=== PATIENT | male | born 1950 | race Caucasian/White ===

== ENCOUNTER 2017-08-20 13:53 | Outpatient (CLI) | payer MEDICARE | END 2017-08-20 13:54 | disposition home or self-care (01) | LOC: BICMRI 13:53 | PROVIDERS: ATTEND Physical Medicine & Rehabilitation | DX: M47.892 Other spondylosis, cervical region (principal); M99.81 Other biomechanical lesions of cervical region; M50.823 Other cervical disc disorders at C6-C7 level; Z98.1 Arthrodesis status | CPT/HCPCS: 72141 ==

== ENCOUNTER 2019-05-20 14:02 | Outpatient (CLI) | payer MEDICARE ==
--- NOTE | 2019-05-20 16:09 | MRI ---
MRI LUMBAR SPINE NONCONTRAST: DATE: 05/20/2019 HISTORY: 69-year-old male with lumbar spondylosis. Low back pain. COMPARISON: None FINDINGS: 5 lumbar-type vertebrae. Vertebral body heights are maintained. No bone marrow signal abnormality. Ca uda equina is arranged in a symmetrical, normal distribution throughout the thecal sac. Conus medullaris terminates at T12-L1. Flowing bridging osteophytes from T11 T12-L1 level 2-3 and probably L3-4, consistent with DISH. T12-L1:Small right paracentral disc herniation or disc-osteophyte complex indents the right ventral a spect of thecal sac. No central stenosis or neural foraminal stenosis. Disc space maintained. L1-2:Normal L2-3:No central stenosis. Right far lateral and left far lateral disc bulges minimally encroach upon bilateral neural foraminal without high-grade neural foraminal stenosis. Disc space maintained. Mild facet DJD. L3-4:Mild bilateral facet DJD. No central stenosis. Mild bilateral neural foraminal stenosis. Disc sp landry maintained. L4-5:Severe bilateral degenerative facet hypertrophy, left greater than right. The facet DJD results in grade 1 anterolisthesis of L4 on L5. Minimal disc space narrowing. Mild diffuse disc bulge. Mild-moderate bilateral neural foraminal stenosis, right greater than left. No central stenosis. L5-S1:Moderate bilateral facet DJD. Moderate right neural foraminal stenosis. Mild left neural forami nal stenosis. No central stenosis. Disc space maintained. Small central and right paracentral disc protrusion abutting the right S1 nerve root at the right lateral recess. IMPRESSION: 1. Severe facet osteoarthrosis at L4-5 causing grade 1 spondylolisthesis. 2. Right paracentral and lateral small disc herniation at L5-S1 abutting right S1 nerve root. 3. Moderate right neural foraminal stenosis at L5-S1 4. No central spinal canal stenosis at any level. 5. Mild degenerative disc disease at a few levels.
== END 2019-05-20 14:03 | disposition home or self-care (01) ==
LOC: SCSMRI 14:02
PROVIDERS: ATTEND Orthopaedic Surgery
DX: M47.816 Spondylosis without myelopathy or radiculopathy, lumbar region (principal); M43.16 Spondylolisthesis, lumbar region; M48.07 Spinal stenosis, lumbosacral region; M51.36 Other intervertebral disc degeneration, lumbar region; M51.27 Other intervertebral disc displacement, lumbosacral region
CPT/HCPCS: 72148

== ENCOUNTER 2020-03-21 06:53 | Outpatient (CLI) | payer MEDICARE ==
--- NOTE | 2020-03-21 14:15 | RAD ---
EXAM: Two views chest PROVIDED CLINICAL HISTORY: Preoperative evaluation. COMPARISON: 02/05/2009. FINDINGS: Cardiac silhouette and pulmonary vasculature are within normal limits. Most inferior aspect lateral posterior costophrenic angles are excluded from view. However, the lungs are otherwise clear. Calcification of the anterior longitudinal ligament is again seen with degenerative changes in the sp ine. Chest is stable compared to prior exam. IMPRESSION: No acute cardiopulmonary process.
[2020-03-21 14:53] LABS: Hemoglobin 15.9 g/dL (14.0-18.0); Mean Corpuscular HGB CONC 34.3 G/DL (32.0-36.0); Mean Corpuscular Hemoglobin 32.7 PG (27.0-33.0); Mean Corpuscular Volume 95.5 fl (80.0-100.0); Mean Platelet Volume 10.4 fl (7.4-10.4); Platelet Count 225 10x3/uL (130-400); RBC Distribution Width 12.5 % (11.5-14.5); Red Blood Cell (RBC) Count 4.86 10x6/uL (4.40-5.80); White Blood Cell (WBC) Count 5.4 10x3/uL (4.5-11.0)
[2020-03-21 15:01] LABS: Anion Gap 18 mmol/L (10-20); BUN (Urea Nitrogen) 21 mg/dL (8.4-25.7); Calc. Creatinine Clearance 0 mL/min (70-130); Calcium 9.8 mg/dL (7.8-10.44); Carbon Dioxide 19 mmol/L (23-31); Chloride 107 mmol/L (98-107); Glucose 208 mg/dL (80-115); Potassium 4.8 mmol/L (3.5-5.1); Sodium 139 mmol/L (136-145)
[2020-03-22 01:36] LABS: SARS-CoV-2 MS2 Positive; SARS-CoV-2 N Gene Negative; SARS-CoV-2 S Gene Negative; SARS-CoV-2 by NAA Not Detected (NotDetected); SARS-CoV-2 orf1ab Negative
== END 2020-03-21 06:54 | disposition home or self-care (01) ==
LOC: LABBT 06:53
PROVIDERS: ATTEND Thoracic Surgery (Cardiothoracic Vascular Surgery)
DX: Z01.818 Encounter for other preprocedural examination (principal); Z20.822 Contact with and (suspected) exposure to COVID-19; I25.10 Atherosclerotic heart disease of native coronary artery without angina pectoris
CPT/HCPCS: 71046; 80048; 85027; 93005; U0003; 87635; 93010

== ENCOUNTER 2020-05-11 14:52 | Outpatient (CLI) | payer MEDICARE ==
[2020-05-11 17:58] LABS: #Eosinphils 0.3 10x3/uL (0.0-0.5); #Monocytes 0.5 10x3/uL (0.0-1.1); #Neutrophils 2.9 10x3/uL (1.5-8.4); %Basophils 0.8 % (0.0-2.0); %Eosinophils 5.5 % (0.0-6.0); %Lymphocytes 29.1 % (18.0-47.0); %Monocytes 9.7 % (0.0-10.0); %Neutrophils 54.5 % (40.0-75.0); Hemoglobin 15.9 g/dL (13.5-17.5); Mean Corpuscular HGB CONC 33.8 g/dL (32.0-36.0); Mean Corpuscular Hemoglobin 32.4 pg (27.0-33.0); Mean Corpuscular Volume 95.7 fl (81.2-95.1); Mean Platelet Volume 11.3 fl (7.4-10.4); Platelet Count 205 10x3/uL (150-450); Red Blood Cell (RBC) Count 4.91 10x6/uL (4.32-5.72); White Blood Cell (WBC) Count 5.3 10x3/uL (3.5-10.5)
[2020-05-11 18:11] LABS: Anion Gap 16 mmol/L (10-20); BUN (Urea Nitrogen) 17 mg/dL (8.4-25.7); Calc. Creatinine Clearance 0 mL/min (70-130); Calcium 9.8 mg/dL (7.8-10.44); Carbon Dioxide 20 mmol/L (23-31); Chloride 109 mmol/L (98-107); Glucose 143 mg/dL (80-115); Sodium 140 mmol/L (136-145)
[2020-05-12 02:33] LABS: SARS-CoV-2 PCR by NAA Not Detected (NotDetected)
== END 2020-05-11 14:53 | disposition home or self-care (01) ==
LOC: LABBT 14:52
PROVIDERS: ATTEND Thoracic Surgery (Cardiothoracic Vascular Surgery)
DX: Z01.812 Encounter for preprocedural laboratory examination (principal); Z20.822 Contact with and (suspected) exposure to COVID-19; I25.10 Atherosclerotic heart disease of native coronary artery without angina pectoris
CPT/HCPCS: 80048; 85025; U0003; U0005; 86850; 86900; 86901; 87635

== ENCOUNTER 2020-05-11 15:00 | Inpatient (IN) | payer MEDICARE ==
[2020-05-14 10:47] VITALS: BMI 30.5
[2020-05-15] MEDS ORDERED: Dexmedetomidine 200 MCG/2 ML VIAL ONE (06:44)
[2020-05-15] MEDS ORDERED: Fentanyl 250 MCG/5 ML VIAL ONE (06:44)
[2020-05-15] MEDS ORDERED: Midazolam HCl 5 mg/5 ml Vial ONE (06:44)
[2020-05-15] MEDS ORDERED: Heparin 10,000 UNITS/1 ML VIAL 30,000 UNITS in Sodium Chloride 0.9% 1,000 ML FS SCH (06:45)
[2020-05-15] MEDS ORDERED: Midazolam HCl 2 mg/2 ml Vial ONE (07:10)
[2020-05-15] MEDS ORDERED: Ondansetron ODT 4 MG TAB ONE (07:10)
[2020-05-15] MEDS ORDERED: Lidocaine 2% PF 5 ML VIAL ONE (07:19)
[2020-05-15] MEDS ORDERED: Sodium Chloride 0.9% 10 ML ONE (07:50)
[2020-05-15] MEDS ORDERED: Insulin Regular 300 UNITS/3 ML VIAL ONE (08:21)
[2020-05-15] MEDS ORDERED: PHENYLEPHRINE-NS 100 MCG/ML 10 ML SYRINGE ONE (08:48)
[2020-05-15] MEDS ORDERED: Thrombin 5000 UNITS/5 ML VIAL ONE (09:44)
[2020-05-15] MEDS ORDERED: Vecuronium 10 MG VIAL ONE (09:44)
[2020-05-15] MEDS ORDERED: Nitroglycerin 50 MG/250 ML BOT ONE (09:44)
[2020-05-15] MEDS ORDERED: Heparin 5,000 UNITS/ML VIAL ONE (09:44)
[2020-05-15] MEDS ORDERED: Cardioplegic Soln 1,000 ML BAG ONE (09:44)
[2020-05-15] MEDS ORDERED: Glycopyrrolate 0.2 MG/ML 5 ML SYRINGE ONE (09:44)
[2020-05-15] MEDS ORDERED: Sodium Bicarb 50 MEQ/50 ML Abboject 8.4% SYRINGE ONE (09:44)
[2020-05-15] MEDS ORDERED: Lidocaine 2% PF 100 mg/5 ml Syringe ONE (09:44)
[2020-05-15] MEDS ORDERED: Ondansetron PF 4 MG/2 ML Vial ONE (09:44)
[2020-05-15] MEDS ORDERED: PROPOFOL 200 MG/20 ML VIAL ONE (09:44)
[2020-05-15] MEDS ORDERED: Papaverine 60 MG/2 ML VIAL ONE (09:44)
[2020-05-15] MEDS ORDERED: Dexamethasone 20 MG/5 ML VIAL ONE (09:44)
[2020-05-15] MEDS ORDERED: Aminocaproic Acid 5 GM/20 ML VIAL ONE (09:44)
[2020-05-15] MEDS ORDERED: Lidocaine 1% PF 5 ML VIAL ONE (09:44)
[2020-05-15] MEDS ORDERED: Calcium Chloride 1 GM/10 ML Abboject SYRINGE ONE (09:44)
[2020-05-15] MEDS ORDERED: Mannitol 12.5 GM/50 ML ONE (09:44)
[2020-05-15] MEDS ORDERED: Norepinephrine 4 MG/4 ML VIAL ONE (09:44)
[2020-05-15] MEDS ORDERED: Protamine Sulfate 250 MG/25 ML VIAL ONE (09:44)
[2020-05-15] MEDS ORDERED: Magnesium Sulfate 1 GM/2 ML VIAL ONE (09:44)
[2020-05-15] MEDS ORDERED: Heparin 30,000 units/30 ml VIAL ONE (09:44)
[2020-05-15] MEDS ORDERED: Potassium Chloride 60 MEQ/30 ML VIAL ONE (09:44)
--- NOTE | 2020-05-15 12:11 | OP ---
DATE OF PROCEDURE: 05/15/2020 PREOPERATIVE DIAGNOSES: Coronary artery disease/diabetes mellitus/hypertension/dyslipidemia. POSTOPERATIVE DIAGNOSES: Coronary artery disease/diabetes mellitus/hypertension/dyslipidemia. PROCEDURES PERFORMED: Coronary artery bypass grafting x4 - 1. Left internal mammary artery to 2.0 mm mid left anterior descending - good conduit and target. 2. Reverse saphenous vein to 1.5 mm posterior descending artery - good conduit and diffusely diseased target. 3. Reverse saphenous vein to 1.5 mm diagonal - good conduit and target. 4. Reverse saphenous vein to 2.0 mm diffusely diseased ramus. ANESTHESIA: General endotracheal, Dr. Sukh Lopez. PUMP TIME: 70 minutes. CROSS-CLAMP TIME: 49 minutes. LOW-CORE TEMPERATURE: 34 degrees Celsius. NARROW GAUGE ENGINEER: Laura Carnes. DRAINS: 19 and 24-[place] Michael drain. DRIPS: None. TRANSFUSIONS: None. DESCRIPTION OF PROCEDURE: After consent was obtained, the patient was brought to the operating room, placed in supine position on the operating room table. Appropriate central line and monitors were placed and general endotracheal anesthesia was induced. Chest, abdomen, and legs were prepped and draped in usual sterile fashion. Greater saphenous vein was harvested from the left lower extremity utilizing an endoscopic technique. Wounds were irrigated and closed in layers. Median sternotomy was performed. Left internal mammary artery was harvested as a pedicle graft. The patient was systemically heparinized. Distal pedicle was divided and infused with papaverine. Thymic fat and pericardium were divided with electrocautery. Pericardial stay sutures were placed. Aortic and atrial cannulation was performed. After adequate heparinization, retrograde prime was performed. The patient was placed on cardiopulmonary bypass. Distal targets were marked. The terminal circ system was too small for bypass. Aortic cross-clamp was applied and antegrade sanguineous cardioplegic arrest was obtained. 1 L of antegrade cold [place] cardioplegia was given. Topical cold solution was used. Reverse saphenous vein was anastomosed to PDA in end-to-side fashion with running 7-0 Prolene suture. Anastomosis was tested and was hemostatic. Reverse saphenous vein was anastomosed to the ramus in end-to-side fashion with running 7-0 Prolene suture. Anastomosis was tested and was hemostatic. Reverse saphenous vein was anastomosed to diagonal in end-to-side fashion with running 7-0 Prolene suture. Anastomosis was tested and was hemostatic. Mammary artery was brought through a window in the pericardium and anastomosed to LAD in end-to-side fashion with running 7-0 Prolene suture. On release of mammary clamps, good hooding of the anastomosis and good distal flow. Pedicle was secured with interrupted 6-0 Prolene suture. Cross-clamp was removed and partial occluding clamp placed. Saphenous veins were anastomosed to individual punch sites in the aorta with running 6-0 Prolene suture. Partial occluding clamp was removed and graft was deaired. Anastomoses were inspected for hemostasis, which was good. The patient was warmed and weaned from cardiopulmonary bypass. After resumption of sinus rhythm, good hemodynamics, temperature greater than 36.5, bypass was discontinued. Transfusion was given. Protamine was administered. Decannulation was performed. A pursestring suture was secured. Venous cannulation site was reinforced with 4-0 Prolene suture. Vancomycin paste was placed on the sternal edges. After adequate hemostasis had been obtained, a 19-[place] Michael drain was placed in the left pleural cavity and a 24-[place] Michael drain placed in mediastinum. The sternum was closed with #7 wire. Sternum was treated with platelet rich plasma, wires twisted and buried. Wounds were irrigated, treated with platelet poor plasma, and closed in multiple layers. Needle, sponge, and instrument counts were all reported as correct at the end of the procedure. The patient tolerated the procedure well, was awakened, extubated, and transferred to the intensive care unit in stable condition. Job ID: [id number]
[2020-05-15 12:48] LABS: Potassium 1.5 mmol/L (3.5-5.1)
[2020-05-15] MEDS ORDERED: Nitroglycerin 50 MG/250 ML BOT 250 ML ONE (12:56)
[2020-05-15] MEDS ORDERED: hydrALAZINE 20 MG/ML VIAL SLOW IVP PRN (12:58)
[2020-05-15] MEDS ORDERED: Morphine 2 MG/ML VIAL SLOW IVP PRN (12:58)
[2020-05-15] MEDS ORDERED: Ondansetron PF 4 MG/2 ML Vial IVP PRN (12:58)
[2020-05-15] MEDS ORDERED: Nitroglycerin 50 MG/250 ML BOT 250 ML IVPB PRN (12:58)
[2020-05-15] MEDS ORDERED: Magnesium 2 GM/50 ML 2 GM in Premix Bag 1 BAG IVPB SCH (12:58)
[2020-05-15] MEDS ORDERED: Hetastarch 6% 500 ML 500 ML IVPB PRN (12:58)
[2020-05-15] MEDS ORDERED: Bisacodyl 10 MG SUPP PR PRN (12:58)
[2020-05-15] MEDS ORDERED: Norepinephrine 8 MG/0.9% NS 250 ML IVPB PRN (12:58)
[2020-05-15] MEDS ORDERED: Mag-Al 1200 mg/1200 mg/30 ML UDCUP PO PRN (12:58)
[2020-05-15] MEDS ORDERED: Potassium Chloride 20 MEQ/100 ML PREMIX BAG IVPB PRN (12:58)
[2020-05-15] MEDS ORDERED: Acetaminophen 325 MG TAB PO PRN (12:58)
[2020-05-15] MEDS ORDERED: Post-Op Insulin Drip Protocol IVPB ONE (12:58)
[2020-05-15] MEDS ORDERED: D5 1/2 NS w/20 mEq KCL 1,000 ML IV SCH (12:58)
[2020-05-15] MEDS ORDERED: Fentanyl 100 MCG/2 ML VIAL SLOW IVP PRN (12:58)
[2020-05-15] MEDS ORDERED: Ketorolac Tromethamine 30 MG/ML VIAL IVP SCH ×3 (12:58→22:15)
[2020-05-15] MEDS ORDERED: Bisacodyl 5 MG TAB PO PRN (12:58)
[2020-05-15 13:04] LABS: Actual Bicarbonate (HCO3a) 19.7 mEq/L (22-28); Base Excess (BEa) -6.1 mEq/L (-2.0 to +3.0); Calcium, Ionized (arterial) 1.19 mmol/L (1.12-1.30); Carboxyhemoglobin (COHb) 0.5 gm% (0.0-3.0); Hemoglobin (Hb) 14.4 g/dL (14.0-18.0); O2 Tension (PaO2), arterial 67.4 mmHg (> 70.0); Potassium - ABG Lab 4.29 mmol/L (3.70-5.30); pH, Arterial 7.31 (7.35-7.45)
[2020-05-15 13:05] LABS: Puncture Site Arterial Line
[2020-05-15 13:14] LABS: #Eosinphils 0.1 thou/uL (0.0-0.7); #Lymphocytes 1.8 thou/uL (1.20-3.40); #Monocytes 0.7 thou/uL (0.11-0.59); #Neutrophils 8.9 thou/uL (1.40-6.50); %Basophils 0.2 % (0.0-1.0); %Eosinophils 1.2 % (0.0-10.0); %Lymphocytes 15.4 % (21.0-51.0); %Monocytes 6.1 % (0.0-10.0); %Neutrophils 77.2 % (42.0-75.0); Mean Corpuscular HGB CONC 33.6 g/dL (32.0-36.0); Mean Corpuscular Hemoglobin 33.6 pg (27.0-31.0); Mean Platelet Volume 7.9 fL (7.4-10.4); Platelet Count 141 thou/uL (130-400); RBC Distribution Width 12.2 % (11.5-14.5); Red Blood Cell (RBC) Count 4.18 mill/uL (4.70-6.10); White Blood Cell (WBC) Count 11.5 thou/uL (4.8-10.8)
[2020-05-15] MEDS ORDERED: Dextrose 5% in Water 1,000 ML IV PRN (13:15)
[2020-05-15] MEDS ORDERED: HUMULIN R 100 UNITS in Sodium Chloride 0.9% 100 ML IVPB SCH (13:15)
[2020-05-15] MEDS ORDERED: Dextrose 50% Abboject 50 ML SYRINGE SLOW IVP PRN (13:15)
[2020-05-15] MEDS ORDERED: Insulin Regular 300 UNITS/3 ML VIAL SC PRN (13:15)
[2020-05-15 13:18] LABS: INR-International Normal Ratio 1.2; PTT 34.5 sec (22.9-36.1); Prothrombin Time 15.5 sec (12.0-14.7)
[2020-05-15 13:36] LABS: Anion Gap 9 mmol/L (10-20); BUN (Urea Nitrogen) 19 mg/dL (8.4-25.7); Calc. Creatinine Clearance 73 mL/min (70-130); Calcium 7.9 mg/dL (7.8-10.44); Carbon Dioxide 23 mmol/L (23-31); Chloride 112 mmol/L (98-107); Glucose 160 mg/dL (80-115); Potassium 4.6 mmol/L (3.5-5.1); Sodium 139 mmol/L (136-145)
--- NOTE | 2020-05-15 13:52 | RAD ---
Exam: Chest one view HISTORY:Postoperative chest radiograph. That is postoperative surgery Comparison: 03/21/2020 FINDINGS: Cardiac silhouette:Normal cardiac silhouette. There are sternotomy wires Lines and tubes: There is a left-sided chest tube and right-sided subclavian vascular catheter Aorta: Unremarkable Pulmonary vessels: Normal Costophrenic angles: Clear LUNGS: Interstitial and alveolar opacities. Correlate for possible edema Pneumothorax: None Osseous abnormalities: None IMPRESSION: Findings compatible with recent open heart surgery
[2020-05-15] MEDS: traMADol HCl 50 MG TAB PO PRN ×2 (14:27→18:22)
[2020-05-15] MEDS: CEFAZOLIN 2 GM in Premix Bag 1 BAG IVPB SCH ×2 (16:05→23:09)
[2020-05-15 18:48] LABS: Hemoglobin 13.5 g/dL (14.0-18.0)
[2020-05-15 18:56] LABS: Potassium 4.9 mmol/L (3.5-5.1)
[2020-05-15] MEDS: Fentanyl 100 MCG/2 ML VIAL SLOW IVP PRN (19:40)
[2020-05-15] MEDS: Guaifenesin DM 100-10/5 ML UDCUP PO PRN (19:47)
[2020-05-15] MEDS: Rosuvastatin 20 MG TAB PO SCH (20:34)
[2020-05-15] MEDS: Ketorolac Tromethamine 30 MG/ML VIAL IVP SCH (20:35)
[2020-05-15] MEDS ORDERED: Famotidine/PF 20 mg/2ml Vial SLOW IVP SCH (21:00)
[2020-05-16] MEDS: Guaifenesin DM 100-10/5 ML UDCUP PO PRN (02:36)
[2020-05-16] MEDS: Ketorolac Tromethamine 30 MG/ML VIAL IVP SCH (02:36)
[2020-05-16 05:09] LABS: Anion Gap 12 mmol/L (10-20); BUN (Urea Nitrogen) 27 mg/dL (8.4-25.7); Calc. Creatinine Clearance 65 mL/min (70-130); Carbon Dioxide 20 mmol/L (23-31); Chloride 111 mmol/L (98-107); Glucose 145 mg/dL (80-115); Potassium 5.9 mmol/L (3.5-5.1); Sodium 137 mmol/L (136-145)
[2020-05-16 05:16] LABS: #Basophils 0.1 thou/uL (0.0-0.2); #Lymphocytes 0.7 thou/uL (1.20-3.40); #Monocytes 0.7 thou/uL (0.11-0.59); #Neutrophils 9.6 thou/uL (1.40-6.50); %Basophils 0.6 % (0.0-1.0); %Eosinophils 0.1 % (0.0-10.0); %Lymphocytes 6.1 % (21.0-51.0); %Monocytes 6.7 % (0.0-10.0); %Neutrophils 86.5 % (42.0-75.0); Hemoglobin 12.2 g/dL (14.0-18.0); Mean Corpuscular HGB CONC 32.9 g/dL (32.0-36.0); Mean Corpuscular Hemoglobin 33.1 pg (27.0-31.0); Mean Platelet Volume 8.3 fL (7.4-10.4); Platelet Count 129 thou/uL (130-400); RBC Distribution Width 12.2 % (11.5-14.5); Red Blood Cell (RBC) Count 3.67 mill/uL (4.70-6.10); White Blood Cell (WBC) Count 11.1 thou/uL (4.8-10.8)
[2020-05-16] MEDS: traMADol HCl 50 MG TAB PO PRN ×2 (05:33→13:36)
[2020-05-16] MEDS ORDERED: Milk Of Magnesia 30 ML UDCUP PO PRN (07:22)
[2020-05-16] MEDS ORDERED: Bisacodyl 10 MG SUPP PR PRN (07:22)
[2020-05-16] MEDS ORDERED: Mineral Oil ENEMA PR PRN (07:22)
[2020-05-16] MEDS ORDERED: diphenhydrAMINE 25 MG CAP PO PRN ×2 (07:22→14:45)
[2020-05-16] MEDS ORDERED: Guaifenesin DM 100-10/5 ML UDCUP PO PRN (07:22)
[2020-05-16] MEDS ORDERED: Mag-Al 1200 mg/1200 mg/30 ML UDCUP PO PRN (07:22)
[2020-05-16] MEDS ORDERED: Nitroglycerin 0.4 MG TAB (25 Tab Bottle) SL PRN (07:22)
[2020-05-16] MEDS ORDERED: Zolpidem Tartrate 5 MG TAB PO PRN (07:22)
[2020-05-16] MEDS ORDERED: Bisacodyl 5 MG TAB PO PRN (07:22)
--- NOTE | 2020-05-16 08:05 | RAD ---
Chest AP view INDICATION: Status post open-heart surgery COMPARISON: May 15, 2020 FINDINGS: Lungs: There is slightly worsening airspace disease of the left lower lobe with a focal region of le ft lower lobe subsegmental atelectasis. Some of this may be related to depth of inspiration whereas on this examination the patient has poor inspiration. Cardiac silhouette: Midline sternotomy changes, right subclavian central venous catheter are stable. Pulmonary vasculature: Normal Pleural spaces: Left-sided thoracostomy tube is stable. No definite pneumothorax is evident. Upper abdomen: Numerous cardiac leads overlie the patient. Osseous structures: No acute osseous abnormality. Additional findings: None. IMPRESSION: 1. Poor inspiration. Worsening opacity in the left lower lobe may reflect subsegmental volume loss. Repeat chest radiograph with improved inspiration is recommended to exclude presence of developing infiltrate in the left lower lobe. 2. No pneumothorax. 3. Stable right subclavian central venous catheter and left-sided thoracostomy tube.
[2020-05-16] MEDS: Magnesium 2 GM/50 ML 2 GM in Premix Bag 1 BAG IVPB SCH (08:15)
[2020-05-16] MEDS: Allopurinol 300 MG TAB PO SCH (08:15)
[2020-05-16] MEDS: Aspirin 325 MG TAB PO SCH (08:15)
[2020-05-16] MEDS: Famotidine 20 MG TAB PO SCH ×2 (08:15→20:54)
[2020-05-16] MEDS: Furosemide 40 MG TAB PO SCH (08:15)
[2020-05-16] MEDS: Potassium Chloride 10 MEQ TAB PO SCH (08:16)
[2020-05-16] MEDS: CEFAZOLIN 2 GM in Premix Bag 1 BAG IVPB SCH (08:16)
[2020-05-16] MEDS: Fluticasone Propionate Nasal Spray 16 gm Bottle NASAL SCH (08:16)
[2020-05-16] MEDS ORDERED: [UNRECOGNIZED DRUG - OTHER] PO SCH (09:00)
[2020-05-16] MEDS ORDERED: CRANBERRY PO SCH (09:00)
[2020-05-16] MEDS ORDERED: ASCORBIC ACID PO SCH (09:00)
[2020-05-16] MEDS ORDERED: TUMERIC 1000 MG PO SCH (09:00)
[2020-05-16] MEDS: Insulin Regular 300 UNITS/3 ML VIAL SC PRN ×2 (16:25→21:01)
[2020-05-16] MEDS: Fentanyl 100 MCG/2 ML VIAL SLOW IVP PRN (20:52)
[2020-05-16] MEDS: Rosuvastatin 20 MG TAB PO SCH (20:54)
[2020-05-17] MEDS: Insulin Regular 300 UNITS/3 ML VIAL SC PRN ×5 (00:17→21:32)
[2020-05-17] MEDS: Fentanyl 100 MCG/2 ML VIAL SLOW IVP PRN (03:38)
[2020-05-17 04:33] LABS: Anion Gap 14 mmol/L (10-20); BUN (Urea Nitrogen) 33 mg/dL (8.4-25.7); Calc. Creatinine Clearance 62 mL/min (70-130); Calcium 8.1 mg/dL (7.8-10.44); Carbon Dioxide 22 mmol/L (23-31); Chloride 105 mmol/L (98-107); Glucose 202 mg/dL (80-115); Potassium 4.7 mmol/L (3.5-5.1); Sodium 136 mmol/L (136-145)
[2020-05-17] MEDS: traMADol HCl 50 MG TAB PO PRN ×3 (05:27→17:18)
[2020-05-17] MEDS: Famotidine 20 MG TAB PO SCH ×2 (08:51→21:23)
[2020-05-17] MEDS: Potassium Chloride 10 MEQ TAB PO SCH (08:51)
[2020-05-17] MEDS: Magnesium 2 GM/50 ML 2 GM in Premix Bag 1 BAG IVPB SCH (08:51)
[2020-05-17] MEDS: Aspirin 325 MG TAB PO SCH (08:51)
[2020-05-17] MEDS: Furosemide 40 MG TAB PO SCH (08:51)
[2020-05-17] MEDS: Allopurinol 300 MG TAB PO SCH (08:58)
[2020-05-17] MEDS: Fluticasone Propionate Nasal Spray 16 gm Bottle NASAL SCH (10:57)
[2020-05-17] MEDS: Rosuvastatin 20 MG TAB PO SCH (21:23)
[2020-05-18] MEDS: traMADol HCl 50 MG TAB PO PRN (00:41)
[2020-05-18 05:12] VITALS: TEMP 98.3
[2020-05-18 05:12] LABS: Anion Gap 14 mmol/L (10-20); BUN (Urea Nitrogen) 32 mg/dL (8.4-25.7); Calc. Creatinine Clearance 69 mL/min (70-130); Calcium 8.1 mg/dL (7.8-10.44); Carbon Dioxide 22 mmol/L (23-31); Chloride 102 mmol/L (98-107); Glucose 148 mg/dL (80-115); Potassium 4.6 mmol/L (3.5-5.1); Sodium 133 mmol/L (136-145)
--- NOTE | 2020-05-18 07:50 | DIS ---
DATE OF ADMISSION: 05/15/2020 DATE OF DISCHARGE: 05/18/2020 DIAGNOSES: 1. Coronary artery disease. 2. Hypertension. 3. Dyslipidemia. 4. Diabetes mellitus. PROCEDURE PERFORMED: Elective coronary artery bypass grafting x4 - left internal mammary artery to LAD, saphenous vein graft to PDA, diagonal, and ramus. DESCRIPTION OF HOSPITAL STAY: Mr. Le was admitted for elective bypass as above. He has done well, being discharged to home in good condition. Follow up with me in [address] Michoacano Coley in a month. DISCHARGE MEDICATIONS: Include: 1. Aspirin 81 mg daily. 2. Allopurinol 300 mg daily. 3. Crestor 20 mg at bedtime. 4. Pepcid 20 mg b.i.d. 5. Metoprolol 50 mg q.a.m. 6. Tramadol 50 mg one p.o. b.i.d. p.r.n. Job ID: [id number]
[2020-05-18] MEDS: Allopurinol 300 MG TAB PO SCH (08:26)
[2020-05-18] MEDS: Potassium Chloride 10 MEQ TAB PO SCH (08:26)
[2020-05-18] MEDS: Furosemide 40 MG TAB PO SCH (08:27)
[2020-05-18] MEDS: Fluticasone Propionate Nasal Spray 16 gm Bottle NASAL SCH (08:27)
[2020-05-18] MEDS: Famotidine 20 MG TAB PO SCH (08:27)
[2020-05-18] MEDS: Aspirin 325 MG TAB PO SCH (08:27)
[2020-05-18 11:13] VITALS: BP 185/82
== END 2020-05-18 11:55 | disposition home or self-care (01) | DRG 236 ==
LOC: SURG A 05-15 06:14 → CCU 05-15 12:02 → 2NO 05-17 14:19
PROVIDERS: ADMIT Thoracic Surgery (Cardiothoracic Vascular Surgery); ATTEND Thoracic Surgery (Cardiothoracic Vascular Surgery)
PROC: 02100Z9 Bypass Coronary Artery, One Artery from Left Internal Mammary, Open Approach (ICD-10-PCS; principal; 2020-05-15)
PROC: 021209W Bypass Coronary Artery, Three Arteries from Aorta with Autologous Venous Tissue, Open Approach (ICD-10-PCS; 2020-05-15)
PROC: 06BQ4ZZ Excision of Left Saphenous Vein, Percutaneous Endoscopic Approach (ICD-10-PCS; 2020-05-15)
PROC: 5A1221Z Performance of Cardiac Output, Continuous (ICD-10-PCS; 2020-05-15)
DX: I25.118 Atherosclerotic heart disease of native coronary artery with other forms of angina pectoris (principal); E11.9 Type 2 diabetes mellitus without complications; Z20.822 Contact with and (suspected) exposure to COVID-19; E78.5 Hyperlipidemia, unspecified; I10 Essential (primary) hypertension; G47.30 Sleep apnea, unspecified; M10.9 Gout, unspecified; Z99.89 Dependence on other enabling machines and devices; Z79.82 Long term (current) use of aspirin; Z79.899 Other long term (current) drug therapy; Z88.5 Allergy status to narcotic agent
CPT/HCPCS: 36415; 36416; 36430; 71045; 80048; 82805; 84132; 85014; 85025; 85610; 85730; 86850; 86900; 86901; 93005; 93010; 93798; J0690; J1100; J1642; J1644; J1815; J1885; J2001; J2150; J2250; J2405; J2440; J2704; J2720; J3010; J3370; J3475; J3480; J3490; P9045; Q0162; Q0163; S0017; S0028

== ENCOUNTER 2020-12-06 10:06 | Day surgery (SDC) | payer MEDICARE ==
[2020-12-06] MEDS ORDERED: Iopamidol-370 76% 500 ML 1 ML ONE (10:12)
[2020-12-06 10:49] LABS: #Eosinphils 0.2 thou/uL (0.0-0.7); #Lymphocytes 1.4 thou/uL (1.20-3.40); #Monocytes 0.6 thou/uL (0.11-0.59); #Neutrophils 5.2 thou/uL (1.40-6.50); %Basophils 0.1 % (0.0-1.0); %Eosinophils 2.2 % (0.0-10.0); %Lymphocytes 18.9 % (21.0-51.0); %Monocytes 7.7 % (0.0-10.0); %Neutrophils 71.1 % (42.0-75.0); Hemoglobin 15.1 g/dL (14.0-18.0); Mean Corpuscular HGB CONC 31.9 g/dL (32.0-36.0); Mean Corpuscular Volume 97.2 fL (78.0-98.0); Mean Platelet Volume 7.7 fL (7.4-10.4); Platelet Count 253 thou/uL (130-400); RBC Distribution Width 11.6 % (11.5-14.5); Red Blood Cell (RBC) Count 4.88 mill/uL (4.70-6.10); White Blood Cell (WBC) Count 7.3 thou/uL (4.8-10.8)
[2020-12-06 11:13] LABS: ALT (SGPT) 41 U/L (8-55); AST (SGOT) 27 U/L (5-34); Albumin 4.3 g/dL (3.4-4.8); Alkaline Phosphatase 80 U/L (40-110); Anion Gap 12 mmol/L (10-20); BUN (Urea Nitrogen) 16 mg/dL (8.4-25.7); Bilirubin, Total 0.5 mg/dL (0.2-1.2); Calc. Creatinine Clearance 0 mL/min (70-130); Calcium 9.9 mg/dL (7.8-10.44); Carbon Dioxide 23 mmol/L (23-31); Chloride 104 mmol/L (98-107); Globulin 3.1 g/dL (2.4-3.5); Glucose 251 mg/dL (80-115); Lipase 141 U/L (8-78); Potassium 4.3 mmol/L (3.5-5.1); Protein, Total 7.4 g/dL (5.8-8.1); Sodium 135 mmol/L (136-145)
[2020-12-06] MEDS ORDERED: Ondansetron PF 4 MG/2 ML Vial ONE ×2 (11:46→20:37)
[2020-12-06] MEDS ORDERED: Ketorolac Tromethamine 30 MG/ML VIAL ONE ×2 (11:46→20:37)
[2020-12-06] MEDS ORDERED: Famotidine/PF 20 mg/2ml Vial ONE (12:02)
[2020-12-06] MEDS ORDERED: diphenhydrAMINE 50 MG/ML VIAL ONE (12:02)
[2020-12-06] MEDS ORDERED: methylPREDNISolone Sod Succ/PF 125 MG/2 ML VIAL ONE (12:02)
[2020-12-06] MEDS ORDERED: Levofloxacin 500 mg/D5W 100 ml Premix Bag ONE (15:35)
[2020-12-06 17:16] LABS: SARS-CoV-2 NAA Rapid Test Not Detected (NotDetected)
[2020-12-06] MEDS ORDERED: Lidocaine 1% w/Epinephrine 1:100K 20 ML VIAL ONE (20:09)
[2020-12-06] MEDS ORDERED: Bupivacaine PF 0.5% 30 ML VIAL ONE (20:09)
[2020-12-06] MEDS ORDERED: Fentanyl 100 MCG/2 ML VIAL ONE (20:14)
[2020-12-06] MEDS ORDERED: Rocuronium Bromide 10 MG/ML (10ML VIAL) ONE (20:37)
[2020-12-06] MEDS ORDERED: Lidocaine 1% PF 5 ML VIAL ONE (20:37)
[2020-12-06] MEDS ORDERED: Dexamethasone 20 MG/5 ML VIAL ONE (20:37)
[2020-12-06] MEDS ORDERED: PROPOFOL 200 MG/20 ML VIAL ONE (20:37)
[2020-12-06] MEDS ORDERED: SUGAMMADEX SODIUM 200 MG/2 ML VIAL ONE (20:55)
[2020-12-06] MEDS ORDERED: Ibuprofen 600 MG TAB PO SCH (22:30)
== END 2020-12-06 22:50 | disposition home or self-care (01) ==
LOC: ERS 10:06 → SDC/OP 18:28
PROVIDERS: ATTEND Specialist
PROC: 0FT44ZZ Resection of Gallbladder, Percutaneous Endoscopic Approach (ICD-10-PCS; principal; 2020-12-06)
DX: K80.13 Calculus of gallbladder with acute and chronic cholecystitis with obstruction (principal); K82.1 Hydrops of gallbladder; E11.9 Type 2 diabetes mellitus without complications; I10 Essential (primary) hypertension; K76.0 Fatty (change of) liver, not elsewhere classified; K44.9 Diaphragmatic hernia without obstruction or gangrene; K40.90 Unilateral inguinal hernia, without obstruction or gangrene, not specified as recurrent; Z79.84 Long term (current) use of oral hypoglycemic drugs; Z79.899 Other long term (current) drug therapy; Z88.5 Allergy status to narcotic agent; Z91.010 Allergy to peanuts; Z91.041 Radiographic dye allergy status; Z95.1 Presence of aortocoronary bypass graft; Z98.1 Arthrodesis status; Z20.822 Contact with and (suspected) exposure to COVID-19
CPT/HCPCS: 47562; 71045; 74177; 76705; 80053; 83690; 84484; 85025; 93005; 96365; 96375; 99285; U0002; 36415; 88304; J1100; J1200; J1885; J1956; J2405; J2704; J2930; J3010; Q9967; S0020; S0028

== ENCOUNTER 2021-02-05 13:22 | Outpatient (CLI) | payer MEDICARE | END 2021-02-05 13:23 | disposition home or self-care (01) | LOC: BICULT 13:22 | PROVIDERS: ATTEND Nurse Practitioner Adult Health | DX: R10.32 Left lower quadrant pain (principal) | CPT/HCPCS: 76999 ==

== ENCOUNTER 2021-10-11 09:33 | Outpatient (CLI) | payer MEDICARE | END 2021-10-11 09:34 | disposition home or self-care (01) | LOC: SCSMRI 09:33 | PROVIDERS: ATTEND Internal Medicine | DX: M75.101 Unspecified rotator cuff tear or rupture of right shoulder, not specified as traumatic (principal); M19.011 Primary osteoarthritis, right shoulder; M67.813 Other specified disorders of tendon, right shoulder ==

== ENCOUNTER 2022-12-22 22:23 | Emergency (ER) | payer MEDICARE ==
[~2022-12-22 22:23] MED LIST: Iopamidol 370 76% 100 ML VIAL ONE
[2022-12-22] MEDS ORDERED: Acetaminophen 500 MG TAB ONE ×3 (23:40→23:42)
[2022-12-23 00:09] LABS: #Eosinphils 0.2 thou/uL (0.0-0.7); #Monocytes 0.5 thou/uL (0.11-0.59); #Neutrophils 3.8 thou/uL (1.40-6.50); %Basophils 0.5 % (0.0-1.0); %Lymphocytes 23.6 % (21.0-51.0); %Neutrophils 63.6 % (42.0-75.0); Hematocrit 42.5 % (42.0-52.0); Hemoglobin 14.8 g/dL (14.0-18.0); Mean Corpuscular HGB CONC 34.8 g/dL (32.0-36.0); Mean Corpuscular Hemoglobin 33.6 pg (27.0-31.0); Mean Corpuscular Volume 96.6 fl (78.0-98.0); Mean Platelet Volume 9.8 fL (7.4-10.4); Platelet Count 231 10x3/uL (130-400); RBC Distribution Width 13.1 % (11.5-14.5)
[2022-12-23 00:40] LABS: ALT (SGPT) 34 U/L (8-55); AST (SGOT) 25 U/L (5-34); Albumin 4.2 g/dL (3.4-4.8); Alkaline Phosphatase 70 U/L (40-110); Anion Gap 14 mmol/L (10-20); BUN (Urea Nitrogen) 18 mg/dL (8.4-25.7); Bilirubin, Total 0.3 mg/dL (0.2-1.2); Calc. Creatinine Clearance 0 mL/min (70-130); Calcium 9.7 mg/dL (7.8-10.44); Carbon Dioxide 23 mmol/L (23-31); Chloride 107 mmol/L (98-107); Estimated GFR 72; Globulin 3.2 g/dL (2.4-3.5); Glucose 203 mg/dL (83-110); Potassium 4.2 mmol/L (3.5-5.1); Protein, Total 7.4 g/dL (5.8-8.1); Sodium 140 mmol/L (136-145)
[2022-12-23 01:23] LABS: Troponin I Less than 0.010 ng/mL (< 0.028)
== END 2022-12-23 04:12 | disposition home or self-care (01) ==
LOC: ERS 22:23
DX: M54.2 Cervicalgia (principal); E11.9 Type 2 diabetes mellitus without complications; I10 Essential (primary) hypertension
CPT/HCPCS: 36415; 70498; 80053; 84443; 84484; 85025; 93005; Q9967